=== PATIENT | male | born 1990 | race Asian ===

== ENCOUNTER 2022-09-07 13:42 | Emergency (ER) | payer OTHER ==
[~2022-09-07] VITALS: Ht 177.8 cm; Wt 93.0 kg
[2022-09-07 14:35] LABS: BASOPHILS % (AUTO) 0.5 % (0.0-5.0); HEMATOCRIT 45.8 % (42-54); MEAN CORPUSCULAR HGB CONC 34.1 g/dL (32.0-36.0); MEAN CORPUSCULAR VOLUME 82.2 fL (79-99); MONOCYTES % (AUTO) 8.1 % (3.0-13.0); NEUTROPHILS % (AUTO) 59.2 % (40.0-77.0); PLATELET COUNT (AUTO) 248 K/uL (130-400); RED BLOOD CELL COUNT(AUTO) 5.57 MIL/uL (4.50-6.20); RED CELL DISTRIBUTION WIDTH 12.6 % (11.0-15.5); WHITE BLOOD COUNT (AUTO) 5.9 K/uL (4.8-10.8)
[2022-09-07 14:55] LABS: POTASSIUM 3.9 mmol/L (3.5-5.1)
[2022-09-07 14:59] LABS: APPEARANCE,URINE CLOUDY (CLEAR); BILIRUBIN,URINE NEGATIVE (NEGATIVE); COLOR,URINE LIGHT-YELLOW (YELLOW); GLUCOSE, URINE (UA) NEGATIVE (NEGATIVE); KETONES,URINE NEGATIVE (NEGATIVE); LEUKOCYTE ESTERASE ,URINE NEGATIVE Leu/uL (NEGATIVE); NITRATE,URINE NEGATIVE (NEGATIVE); OCCULT BLOOD,URINE NEGATIVE (NEGATIVE); PROTEIN,URINE NEGATIVE (NEGATIVE); UROBILINOGEN,URINE 0.2 mg/dL (0.2-1.0)
[2022-09-07 15:00] LABS: TOTAL PROTEIN, SERUM 7.3 g/dL (6.0-8.3)
[2022-09-07 15:02] LABS: BACTERIA,URINE RARE /HPF (None Seen); MUCUS,URINE RARE LPF (None Seen); OTHER CASTS, URINE 1 /LPF (None Seen); WBC,URINE 0-1 /HPF (0-1)
[2022-09-07] MEDS ORDERED: 0.9%NACL 1000ML 1,000 ML IV ONE (15:30)
[2022-09-07 18:41] VITALS: BP 125/79
== END 2022-09-07 18:38 | disposition home or self-care (01) ==
LOC: EDH 13:42
DX: E86.0 Dehydration (principal); Z20.822 Contact with and (suspected) exposure to COVID-19
CPT/HCPCS: 99284; 87635; 80053; 85025; 87880; 87804 ×2; 81001; 36415; 93005; C9803

== ENCOUNTER 2024-08-05 16:16 | Emergency (ER) | payer BC, OTHER ==
[~2024-08-05] VITALS: Ht 177.8 cm; Wt 95.3 kg
[2024-08-05 16:45] LABS: BASOPHILS # (AUTO) 0.04 K/uL (0.00-0.20); BASOPHILS % (AUTO) 0.4 % (0.0-5.0); HEMATOCRIT 43.5 % (42-54); IMMATURE GRANULOCYTE ABSOLUTE 0.02 K/uL (0-1); LYMPHOCYTES # (AUTO) 1.7 K/uL (1.0-4.8); LYMPHOCYTES % (AUTO) 16.8 % (21.0-51.0); MEAN CORPUSCULAR HEMOGLOBIN 28.2 pg (27.0-33.0); MEAN CORPUSCULAR HGB CONC 34.3 g/dL (32.0-36.0); MEAN CORPUSCULAR VOLUME 82.4 fL (79-99); MONOCYTES # (AUTO) 0.7 K/uL (0.1-1.0); MONOCYTES % (AUTO) 6.4 % (3.0-13.0); NEUTROPHILS # (AUTO) 7.7 K/uL (1.8-7.7); NEUTROPHILS % (AUTO) 75.2 % (40.0-77.0); PLATELET COUNT (AUTO) 217 K/uL (130-400); RED BLOOD CELL COUNT(AUTO) 5.28 MIL/uL (4.50-6.20); WHITE BLOOD COUNT (AUTO) 10.2 K/uL (4.8-10.8)
[2024-08-05 16:54] LABS: CREATININE 1.1 mg/dL (0.5-1.3)
[2024-08-05 17:03] LABS: APPEARANCE,URINE CLOUDY (CLEAR); BILIRUBIN,URINE NEGATIVE (NEGATIVE); COLOR,URINE LIGHT-YELLOW (YELLOW); GLUCOSE, URINE (UA) NEGATIVE (NEGATIVE); KETONES,URINE NEGATIVE (NEGATIVE); LEUKOCYTE ESTERASE ,URINE NEGATIVE Leu/uL (NEGATIVE); NITRATE,URINE NEGATIVE (NEGATIVE); OCCULT BLOOD,URINE SMALL (NEGATIVE); PH,URINE 5.5 (5.0-8.0); PROTEIN,URINE 20 mg/dL (NEGATIVE); UROBILINOGEN,URINE 0.2 mg/dL (0.2-1.0)
--- NOTE | 2024-08-05 17:29 | ERN ---
General Chief Complaint: Low Back Pain/Injury Stated Complaint: LOWER ABD PAIN Time Seen by MD: 16:17 Source: patient History of Present Illness Initial Comments Patient is a 33-year-old male coming in with right flank right inguinal pain. Per patient this has been ongoing for two weeks. He states that he had an appendectomy two weeks ago and shortly after that started having this discomfort. He was seen by his PCP ordered an ultrasound but he does not know with the findings were. He was here for further evaluation and states that the pain is sharp and 5/10. Allergies: Coded Allergies: No Known Allergies (Unverified Allergy, Unknown, 09/07/22) Past Medical History Past Medical History: High Cholesterol Past Surgical History: Appendectomy Social History Social History: Negative ROS Dictation CONSTITUTIONAL: No chills, no fever, no weakness, no diaphoresis, no malaise. HEAD/FACE: No signs of trauma. EENT: No eye pain, no blurred vision, no tearing, no double vision, no ear pain, no ear discharge, no nose pain, no nasal congestion, no throat pain, no throat swelling, no mouth pain. RESPIRATORY: No cough, no orthopnea, no SOB, no stridor, no wheezing. CARDIOVASCULAR: No chest pain, no edema, no palpitations, no syncope. GASTROINTESTINAL/ABDOMINAL: abdominal pain, no constipation, no diarrhea, no nausea, no vomiting. GENITOURINARY: No abnormal discharge, no dysuria, no frequent urination, no hematuria. No complaints of pain in the genitals. MUSCULOSKELETAL: No back pain, no gout, no joint pain, no joint swelling, no muscle pain, no muscle stiffness, no neck pain. INTEGUMENTARY: No change in color, no change in hair/nails, no dryness, no lesion, no lumps, no rash. NEUROLOGICAL/PSYCH: No anxiety, not depressed, no emotional problem, no headache, no numbness, no pre-existing deficit, no history of seizures, no tremors, no weakness. HEMATOLOGIC/LYMPHATIC: Not anemic, no history of blood clots, no apparent bleeding, no bruising, glands not swollen. All Systems Negative, Except as Noted. Physical Exam Physical Exam Dictation VITAL SIGNS: Reviewed. GENERAL APPEARANCE: Alert, oriented x3, no acute distress, obese. HEAD AND FACE: Non-traumatic. EYES: PERRL, pink conjunctivas, eyelid no trauma, anterior chamber clear. EARS: Pinnas intact and no signs of trauma or erythema. Ear canals clear and no discharge. TMs no erythema. NOSE: No discharge, no bleeding. OROPHARYNX: Mouth normal, teeth no caries, tongue pink. Pharynx clear, no erythema. Tonsils no exudates, no abscesses noted. Mucous membrane moist. NECK: Supple, non-tender, no thyromegaly, no masses, no JVD, no bruits. BREAST: Deferred. CHEST: No tenderness, no crepitus, no paradoxical movement, no retractions. LUNGS: Clear, well-ventilated, symmetric, no rales, no wheezing, no rhonchi, no stridor, good breath sounds bilaterally. HEART: Regular rate, regular rhythm, no murmur, no gallops. VASCULAR: No peripheral edema. ABDOMEN: Soft, positive bowel sounds, nondistended, no guarding, right flank right lower abdominal pain reproducible on palpation, no rebound, no masses no hepatomegaly, no splenomegaly, no Farah's sign, no hernias. RECTAL: Deferred. GENITAL: Deferred. NEUROLOGICAL: Normal speech, gross motor function intact, gross sensory function intact. MUSCULOSKELETAL: Neck nontender, full range of motion, back nontender, full range of motion. EXTREMITIES: Nontender, full range of motion. SKIN: Color pink, dry, no turgor, no rash, no lacerations, no abrasions, no contusions. LYMPHATICS: Deferred. Results Laboratory and Microbiology Lab and Micro Result Laboratory Tests Test 08/05/24 16:39 08/05/24 16:52 White Blood Count 10.2 K/uL (4.8-10.8) Red Blood Count 5.28 MIL/uL (4.50-6.20) Hemoglobin 14.9 g/dL (14.0-18.0) Hematocrit 43.5 % (42-54) Mean Corpuscular Volume 82.4 fL (79-99) Mean Corpuscular Hemoglobin 28.2 pg (27.0-33.0) Mean Corpuscular Hemoglobin Concent 34.3 g/dL (32.0-36.0) Red Cell Distribution Width 13.0 % (11.0-15.5) Platelet Count 217 K/uL (130-400) Mean Platelet Volume 8.7 fL (7.5-10.5) Immature Granulocyte % (Auto) 0.2 % (0-1) Neutrophils (%) (Auto) 75.2 % (40.0-77.0) Lymphocytes (%) (Auto) 16.8 % (21.0-51.0) L Monocytes (%) (Auto) 6.4 % (3.0-13.0) Eosinophils (%) (Auto) 1.0 % (0.0-8.0) Basophils (%) (Auto) 0.4 % (0.0-5.0) Neutrophils # (Auto) 7.7 K/uL (1.8-7.7) Lymphocytes # (Auto) 1.7 K/uL (1.0-4.8) Monocytes # (Auto) 0.7 K/uL (0.1-1.0) Eosinophils # (Auto) 0.10 K/uL (0.00-0.70) Basophils # (Auto) 0.04 K/uL (0.00-0.20) Absolute Immature Granulocyte (auto 0.02 K/uL (0-1) Nucleated Red Blood Cells 0.0 % (0.0-0.19) Sodium Level 141 mmol/L (136-145) Potassium Level 4.0 mmol/L (3.5-5.1) Chloride Level 106 mmol/L (101-111) Carbon Dioxide Level 29 mmol/L (21-32) Blood Urea Nitrogen 16 mg/dL (7-18) Creatinine 1.1 mg/dL (0.5-1.3) Glomerular Filtration Rate Calc 90 mL/min (>90) Random Glucose 93 mg/dL (70-105) Total Calcium 8.8 mg/dL (8.5-10.1) Urine Color LIGHT-YELLOW (YELLOW) Urine Appearance CLOUDY (CLEAR) H Urine pH 5.5 (5.0-8.0) Urine Specific Goessel 1.023 (1.001-1.031) Urine Protein 20 mg/dL (NEGATIVE) H Urine Glucose (UA) NEGATIVE mg/dL (NEGATIVE) Urine Ketones NEGATIVE mg/dL (NEGATIVE) Urine Occult Blood SMALL (NEGATIVE) H Urine Nitrate NEGATIVE (NEGATIVE) Urine Bilirubin NEGATIVE mg/dL (NEGATIVE) Urine Urobilinogen 0.2 mg/dL (0.2-1.0) Urine Leukocyte Esterase NEGATIVE Keaton/uL Urine RBC 6-10 /HPF (0-1) H Urine WBC 2-5 /HPF (0-1) H Urine Calcium Carbonate Crystals FEW /LPF (None Seen) Urine Calcium Oxalate Crystals RARE /LPF (None Seen) Urine Bacteria RARE /HPF (None Seen) Labs Reviewed?: Yes EKG/XRAY/US/CT/MRI CT Scan Comment [facility] [address] [place] [address] IMAGING REPORT Signed PATIENT: ELIE NORMAN MR#: [id number] : 1990 SEX: M AGE: 33 LOCATION: [facility] ORDER 1631 STATUS: REG REPORT#: [id number] SERVICE 1630 REASON: RIGHT FLANK PAIN\ ORDERING PHYSICIAN: ALFONSO ORDONEZ MD PROCEDURE: ABD PEL WO - CT ABDOMEN/PELVIS W/O CONTRAST CT ABDOMEN/PELVIS W/O CONTRAST CLINICAL HISTORY: RIGHT FLANK PAIN\ COMPARISON: None TECHNIQUE: Sequential axial images of abdomen and pelvis without contrast and with sagittal and coronal reconstructions. CT was performed with one or more of the following dose reduction techniques: automated exposure control, adjustment of the mA and/or kV according to patient size, or use of iterative reconstruction technique FINDINGS: The lung bases are clear. Liver and spleen are unremarkable. The gallbladder pancreas and adrenal glands are unremarkable. The left kidney is within normal limits. There is minimal right hydroureteronephrosis and a punctate calculus that was noted centrally in the right ureteral terminus or having just passed into the bladder. There is mild rectal fecal impaction. There is no bulky abdominal or retroperitoneal lymphadenopathy. There is no free air or free fluid. There are bilateral pars defects at L5 with grade 1 anterolisthesis of L5 on S1. IMPRESSION: Punctate 1 to 2 mm right renal terminus calculus with minimal right hydroureteronephrosis. Bilateral pars defects at L5 with grade 1 anterolisthesis of L5 on S1. Mild rectal fecal impaction. DICTATED BY: YASHIRA CASTRO DO DATE: 08/05/24 1735 ELECTRONICALLY SIGNED BY: YASHIRA CASTRO DO DATE: 08/05/24 174 [facility] MDM: Differential diagnosis: Flank pain, kidney stone, Rationale: Tests considered and ordered secondary to shared decision making include: Previous outside records reviewed: Old ER visits. Risk of complication and/or morbidity or mortality of patient management: None Medications-Per medication reconciliation Need for hospitalization: Patient does not meet criteria for hospitalization. Need for emergency major/minor surgery: No There are no social concerns with this patient. Prescription drug management Prescriptions will include symptomatic care Patient's prior external medical records from other ER visits were reviewed by me as indicated. Prior testing and results from previous visits were reviewed. Prior tests were taken into account with medical decision making and resource utilization, independent historian/historians were used to obtain complete medical history. I independently interpreted the test that were performed, results were reviewed by me and considered findings on radiology if ordered. Medical management and examination interpretation discussions were had by me with other qualified healthcare professionals as indicated for the patient's care. ED Course Orders Procedure Category Date Status Time Cbc With Differential LAB 08/05/24 Complete 16:30 Basic Metabolic Panel LAB 08/05/24 Complete 16:30 Urinalysis LAB 08/05/24 Complete W/Microscopic 16:30 Ct Abdomen/Pelvis W/O CT 08/05/24 Resulted Contrast 16:30 Ketorolac PHA 08/05/24 Complete Tromethamine 30mg/Ml 17:30 Current Medications Medications (Trade) Dose Ordered Sig/Kasey Route PRN Reason Start Time Stop Time Status Last Admin Dose Admin Ketorolac Tromethamine (toRADol) 30 mg ONCE ONCE IVP 08/05/24 17:30 08/05/24 17:31 DC 08/05/24 17:34 Vital Signs Date Time Temp Pulse Resp B/P (MAP) Pulse Ox O2 Delivery O2 Flow Rate FiO2 08/05/24 17:53 97.5 90 18 141/67 Room Air* 0 21 08/05/24 16:47 98.8 85 18 149/82 99 Room Air* 0 21 08/05/24 16:25 99.5 90 16 145/100 99 Room Air DX & DISP Disposition: Discharge Departure Impression: Primary Impression: Kidney stone on right side Condition: Stable Scripts Cephalexin Monohydrate (Keflex) 500 Mg Cap 1 CAP PO BID for 10 Days, #20 CAP 0 Refills Prov: ALFONSO ORDONEZ MD 08/05/24 Tamsulosin HCl (Flomax) 0.4 Mg Cap.er.24h 1 CAP PO DAILY for 7 Days, #7 CAP 0 Refills Prov: ALFONSO ORDONEZ MD 08/05/24 Ketorolac Tromethamine (Ketorolac Tromethamine) 10 Mg Tablet 1 TAB PO Q6HPRN PRN for pain for 5 Days, #20 TAB 0 Refills Prov: ALFONSO ORDONEZ MD 08/05/24 Additional Instructions: FOLLOW-UP WITH PRIMARY CARE PROVIDER IN 1 TO 2 DAYS. TAKE MEDICATIONS DIRECTED HERE IN THE EMERGENCY ROOM. OKAY TO CONTINUE HOME MEDICATIONS UNLESS OTHERWISE DISCUSSED DURING YOUR VISIT IN THE EMERGENCY ROOM TODAY. RETURN TO YOUR NEAREST EMERGENCY ROOM IF SYMPTOMS WORSEN OR IF THERE IS NO IMPROVEMENT. CALL 911 IF YOU NEED IMMEDIATE ASSISTANCE. TAKE TYLENOL [id number] NEEDED AND IF NO CONTRAINDICATIONS ARE PRESENT. INCREASE ORAL HYDRATION. A WOUND CULTURE OR URINE CULTURE WAS ORDERED HERE IN THE EMERGENCY ROOM DEPARTMENT PLEASE FOLLOW-UP WITH PRIMARY CARE PROVIDER AND ADVISE THEM TO GET REPEAT PORTS FROM OUR FACILITY. IF YOU HAD ANY LILLIAN WRAP/SPLINTS THAT WERE APPLIED HERE, PLEASE DO NOT REMOVE THEM UNTIL YOU SEE YOUR PRIMARY CARE OR SPECIALTY. Referrals: Referrals: SELF,REFERRAL (PCP) DURAN SALAZAR MD, LUIS A MD Time of Disposition: 18:02 ALFONSO ORDONEZ MD August 05, 2024 17:29
[2024-08-05] MEDS: ketOROlac 30MG VIAL (30MG/ML) IVP ONE (17:34)
--- NOTE | 2024-08-05 17:41 | HMCIMG ---
CT ABDOMEN/PELVIS W/O CONTRAST CLINICAL HISTORY: RIGHT FLANK PAIN\ COMPARISON: None TECHNIQUE: Sequential axial images of abdomen and pelvis without contrast and with sagittal and coronal reconstructions. CT was performed with one or more of the following dose reduction techniques: automated exposure control, adjustment of the mA and/or kV according to patient size, or use of iterative reconstruction technique FINDINGS: The lung bases are clear. Liver and spleen are unremarkable. The gallbladder pancreas and adrenal glands are unremarkable. The left kidney is within normal limits. There is minimal right hydroureteronephrosis and a punctate calculus that was noted centrally in the right ureteral terminus or having just passed into the bladder. There is mild rectal fecal impaction. There is no bulky abdominal or retroperitoneal lymphadenopathy. There is no free air or free fluid. There are bilateral pars defects at L5 with grade 1 anterolisthesis of L5 on S1. IMPRESSION: Punctate 1 to 2 mm right renal terminus calculus with minimal right hydroureteronephrosis. Bilateral pars defects at L5 with grade 1 anterolisthesis of L5 on S1. Mild rectal fecal impaction.
[2024-08-05 17:44] LABS: BACTERIA,URINE RARE /HPF (None Seen); CALCIUM CARBONATE CRYSTALS,UR FEW /LPF (None Seen); CALCIUM OXALATE CRYSTALS,UR RARE /LPF (None Seen); MUCUS,URINE FEW LPF (None Seen)
[2024-08-05] MEDS ORDERED: KETO10TA2 PO (18:03)
[2024-08-05] MEDS ORDERED: CEPH500B PO (18:03)
[2024-08-05] MEDS ORDERED: TAMS-55 PO (18:03)
[2024-08-05] MEDS: tamSULOsin HCL 0.4 MG CAP.ER.24H PO ONE (18:34)
[2024-08-05] MEDS: 0.9%NACL 1000ML 1,000 ML IV ONE (18:34)
[2024-08-05 18:57] VITALS: BP 155/80; PULSE 94; RESP 18; TEMP 98.9; O2SAT 97
== END 2024-08-05 19:06 | disposition home or self-care (01) ==
LOC: EDH 16:16
DX: N13.2 Hydronephrosis with renal and ureteral calculous obstruction (principal); E78.00 Pure hypercholesterolemia, unspecified; Z90.49 Acquired absence of other specified parts of digestive tract
CPT/HCPCS: 99284; 74176; 96374; 80048; 85025; 81001; 36415; J1885; J7030